=== PATIENT | female | born 1940 | race Caucasian/White ===

== ENCOUNTER 2016-09-21 11:35 | Emergency (ER) | payer MEDICARE, OTHER ==
[~2016-09-21 11:35] MED LIST: ASAB PO; BETAPACE80 PO; C25 PO; C5 PO; DIGITEK0.25 MG PO; IRON; LOFIB160 PO; LOVAZA1 GM PO; NIACIN 500 PO; PRIN10 PO
[2016-09-21 11:42] LABS: BASOPHILS 0.4 %; BASOPHILS ABSOLUTE 0.06 10/3/uL (0.0-0.16); EOSINOPHILS ABSOLUTE 5.65 10/3/uL (0.0-0.53); IMMATURE GRANULOCYTES 0.3 %; LYMPHOCYTES 9.6 %; LYMPHOCYTES ABSOLUTE 1.35 10/3/uL (0.67-4.30); MEAN CORPUS HGB CONC 32.8 g/dL (32.0-36.0); MEAN CORPUSCULAR VOLUME 85.5 fL (80-100); MEAN PLATELET VOLUME 11.8 fL (9.2-13.0); MONOCYTES 9.7 %; MONOCYTES ABSOLUTE 1.37 10/3/uL (0.21-1.20); NEUTROPHILS ABSOLUTE 5.66 10/3/uL (2.02-8.40); PLATELET COUNT 184 10/3/uL (150-400)
[2016-09-21 11:43] LABS: ER CBC TAT 0 Hrs 05 Mins; HEMATOCRIT 44.2 % (36.0-48.0); HEMOGLOBIN 14.5 g/dL (12.0-16.0); IMMATURE GRANULOCYTES ABSOLUTE 0.04 10/3/uL (0.0-0.11); MANUAL DIFF NO %; RED CELL COUNT 5.17 10/6/uL (4.0-5.6); WHITE BLOOD CELLS 14.1 10/3/uL (4.5-10.5)
[2016-09-21 11:55] LABS: BUN (BLOOD UREA NITROGEN) 25 MG/DL (6-23); CALCIUM, SERUM 9.4 MG/DL (8.5-10.4); CHLORIDE, SERUM 112 MMOL/L (96-112); CO2 (CARBON DIOXIDE) 27 MMOL/L (24-34); GFR AFRICAN AMERICAN 84 ML/MIN (>=60); GFR NON AFRICAN AMERICAN 72 ML/MIN (>=60); GLUCOSE, SERUM 83 MG/DL (60-99); POTASSIUM, SERUM 4.3 MMOL/L (3.5-5.3); SODIUM, SERUM 146 MMOL/L (135-148)
[2016-09-21 12:12] LABS: BAND NEUTROPHILS 5 %; EOSINOPHILS 37 %; EOSINOPHILS ABSOLUTE (CALC) 5.22 10/3/uL (0.0-0.53); ER DIFF TAT 0 Hrs 34 Mins; LYMPHOCYTES 15 %; LYMPHOCYTES ABSOLUTE (CALC) 2.12 10/3/uL (0.67-4.30); MONOCYTES 1 %; MONOCYTES ABSOLUTE (CALC) 0.14 10/3/uL (0.21-1.20); NEUTROPHILS ABSOLUTE (CALC) 6.63 10/3/uL (2.02-8.40); SEGMENTED NEUTROPHIL (0) 42 %; TOTAL NUCLEATED CELLS 100
[2016-09-21 12:14] LABS: PLATELET ESTIMATE ADQ (ADEQUATE)
[2016-09-21 12:15] LABS: PATH REVIEW YES; RBC MORPHOLOGY NORM (NORMAL)
[2016-09-21 13:11] LABS: ASCORBIC ACID (UR NOT ORDER) 40 (NEG); BILIRUBIN, URINE NEGATIVE (NEG); ER URINALYSIS TAT 0 Hrs 08 Mins; KETONE, URINE NEGATIVE (NEG); LEUKOCYTE ESTERASE(NOT OR LARGE (NEG); NITRITE (URINE) NEG (NEG)
[2016-09-21 13:16] LABS: WBC (NOT ORDERED) (RFLEX) > 182 (0-5)
[2016-09-21 13:38] LABS: PATH REVIEW SEE PATHOLOGY REPORT
== END 2016-09-21 17:52 | disposition home or self-care (01) ==
LOC: ER 11:35
PROVIDERS: Emergency Medicine
DX: N39.0 Urinary tract infection, site not specified (principal); F03.90 Unspecified dementia, unspecified severity, without behavioral disturbance, psychotic disturbance, mood disturbance, and anxiety; I10 Essential (primary) hypertension; Z88.1 Allergy status to other antibiotic agents; Z88.8 Allergy status to other drugs, medicaments and biological substances; Z79.01 Long term (current) use of anticoagulants; Z79.82 Long term (current) use of aspirin; Z79.899 Other long term (current) drug therapy
CPT/HCPCS: 71010; 80048; 81001; 83880; 85025; 87086; 93005; 96365; 99285; J1956